=== PATIENT | male | born 1990 | race Caucasian/White ===

== ENCOUNTER 2024-05-11 22:33 | Emergency (ER) | payer SELFPAY ==
[~2024-05-11] VITALS: Ht 170.2 cm; Wt 63.6 kg
[~2024-05-11 22:33] MED LIST: CLEOCIN HC150 MG/CAP PO; IBUPROFEN600 MG PO; NO HOME MEDICATIONS; TUSS PO
[2024-05-11 22:38] VITALS: TEMP 98.3
[2024-05-11] MEDS ORDERED: Morphine 4 MG/ML VIAL IV ONE (23:00)
[2024-05-11] MEDS ORDERED: Ondansetron 4 MG/2 ML VIAL IV ONE (23:00)
[2024-05-11 23:06] LABS: HEMOGLOBIN 11.8 g/dl (13.5-18.0); MEAN CELL VOLUME 89 fl (80.0-100.0); MEAN CORPUSCULAR HEMOGLOBIN 29 pg (27-31); MEAN CORPUSCULAR HGB CONC 33 g/dl (33.0-37.0); MEAN PLATELET VOLUME 9.5 fl (7.4-10.4); PLATELET COUNT 274 K/mm3 (130-400); RED BLOOD COUNT 4.01 M/mm3 (4.20-5.60); REDCELL DISTRIBUTION WIDTH-CV 13.5 % (11.5-14.5)
[2024-05-11 23:13] LABS: HEMATOCRIT 35.6 % (42.0-52.0)
[2024-05-11 23:25] LABS: ALBUMIN 2.8 g/dL (3.5-5.0); BILIRUBIN,TOTAL 0.2 mg/dL (0.2-1.2); CALCIUM 8.4 mg/dL (8.4-10.2); CREATININE, serum 1.06 mg/dL (0.72-1.25); POTASSIUM 3.1 mEq/L (3.5-4.5); TOTAL PROTEIN 7.6 g/dl (6.2-8.1)
[2024-05-11 23:34] LABS: BAND 5 % (0-10); EOSINOPHIL 3 % (0-4); LYMPHOCYTE 33 % (20.0-51.0); NEUTROPHILS 51 % (42.0-75.2); PLATELET ESTIMATE NORMAL (NORMAL)
[2024-05-11] MEDS ORDERED: Iohexol 300 - 100 ML VIAL IV ONE (23:38)
[2024-05-11] MEDS ORDERED: NS 50 ML IV ONE (23:39)
[2024-05-12] MEDS ORDERED: cefTRIAXone 1 G in Water For Injection,Sterile 10 ML IV ONE (01:45)
[2024-05-12] MEDS ORDERED: Doxycycline Monohydrate 100 MG CAP PO ONE (01:45)
[2024-05-12] MEDS ORDERED: DOXYCYCLINE 10100 MG PO (01:46)
[2024-05-12] MEDS ORDERED: COLACE 100100 MG/CAP PO (01:47)
[2024-05-12 01:58] VITALS: BP 95/71; PULSE 93
[2024-05-12 02:08] LABS: URINE APPEARANCE Clear (CLEAR/HAZY); URINE BLOOD TRACE-INTACT (NEGATIVE); URINE COLOR Yellow (YELLOW); URINE GLUCOSE Negative (NEGATIVE); URINE KETONE Negative (NEGATIVE); URINE NITRATE Negative (NEGATIVE); URINE PROTEIN(semi-quant) Negative (NEGATIVE)
[2024-05-12 02:16] LABS: COLLECTION METHOD CLEAN CATCH
== END 2024-05-12 01:58 | disposition home or self-care (01) ==
LOC: COL.ER 22:33
PROVIDERS: Emergency Medicine
DX: K62.89 Other specified diseases of anus and rectum (principal); R59.1 Generalized enlarged lymph nodes; F17.210 Nicotine dependence, cigarettes, uncomplicated
CPT/HCPCS: J0696; J2270; J2405; Q9967